=== PATIENT | male | born 1950 | race Caucasian/White ===

== ENCOUNTER → 2017-10-13 | Outpatient (CLI) | payer BC ==
[2017-10-13 18:12] LABS: ALBUMIN 3.9 gm/dl (3.4-5.0); ALKALINE PHOSPHATASE 43 U/L (45-117); ALT/SGPT 22 U/L (12-78); AST/SGOT 17 U/L (15-37); BLOOD UREA NITROGEN 13 mg/dl (7-18); CALCIUM 8.6 mg/dl (8.5-10.1); CARBON DIOXIDE 26 mmol/L (21-32); CHOLESTEROL 225 mg/dl (0-200); CREATININE 0.93 mg/dl (0.60-1.40); GLUCOSE 70 mg/dl (70-99); LDL CHOLESTEROL CALCULATED 159 mg/dl; POTASSIUM 3.9 mmol/L (3.5-5.1); SODIUM 139 mmol/L (136-145)
== END | disposition home or self-care (01) ==
LOC: C.LABBFT 11:48
PROVIDERS: ATTEND Internal Medicine
DX: Z00.00 Encounter for general adult medical examination without abnormal findings (principal); E78.5 Hyperlipidemia, unspecified; M54.5 Low back pain; E03.9 Hypothyroidism, unspecified; I10 Essential (primary) hypertension; N52.9 Male erectile dysfunction, unspecified; Z12.5 Encounter for screening for malignant neoplasm of prostate

== ENCOUNTER → 2017-10-14 | Outpatient (CLI) | payer BC ==
--- NOTE | 2017-10-14 12:22 | DIAGNOSTIC IMAGING REPORT ---
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 TECHNIQUE: Multisequence, multiplanar MR imaging of the lumbar spine was performed without the use of intravenous contrast. IV contrast: None. COMPARISON: Plain radiographs of the lumbar spine from 07/27/2017. FINDINGS: Localizer images: Unremarkable. Straightening of normal lumbar lordosis. Vertebral bodies demonstrate normal height and the concave deformities of several endplates are evident without associated bony edema, likely Schmorl's nodes. Vertebral bodies maintain normal alignment and bone marrow signal intensity with the exception of fatty endplate changes anteriorly at L1 and at L5-S1. Diffuse intervertebral disc desiccation. Additional multilevel degenerative changes detailed below: L1-2: Minimal disc bulge without significant spinal canal stenosis. Mild facet arthropathy with resultant mild bilateral neural foraminal narrowing. L2-3: No significant spinal canal or neural foraminal narrowing. L3-4: Focal paracentral disc protrusion with cranial migration of the disc fragment. The protruded disc measures 11 x 11 x 6 mm. There is resultant severe effacement of the ventral thecal sac at the level of L3-4. No residual CSF signal intensity is appreciated. Moderate bilateral neural foraminal narrowing. L4-5: Minimal disc bulge and facet arthropathy. No significant spinal canal narrowing. Mild right and mild to moderate left neural foraminal narrowing. L5-S1: Annular fissure noted. Disc bulge results in minimal effacement of the ventral thecal sac. In combination with facet arthropathy, severe bilateral neural foraminal narrowing present. Spinal cord ends in good position at L1. Cauda equina crowding at L3-4 as mentioned above with resultant buckled morphology of the cauda equina. Paraspinal musculature normal. No gross evidence of an epidural collection apart from the disc protrusion/extrusion. Remaining visualized soft tissues within normal limits. IMPRESSION: 1. Focal disc protrusion with cranial migration at the level of L3-4 with resultant severe spinal canal stenosis. Correlate clinically to exclude cauda equina syndrome. 2. Multilevel degenerative changes with varying degrees of neural foraminal narrowing further detailed above. The report will be called/faxed according to standard departmental protocol. Electronically signed by: Christiano Toledo M.D. 10/14/2017 12:21 PM Dictated Date/Time: 10/14/2017 12:12 PM
== END | disposition home or self-care (01) ==
LOC: C.MRI 11:13
PROVIDERS: ATTEND Internal Medicine
DX: M47.816 Spondylosis without myelopathy or radiculopathy, lumbar region (principal)